=== PATIENT | male | born 1995 | race Caucasian/White ===

== ENCOUNTER 2016-12-02 17:11 | Emergency (ER) | payer OTHER ==
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
== END 2016-12-02 18:50 | disposition home or self-care (01) ==
LOC: ER 17:11
DX: S80.11XA Contusion of right lower leg, initial encounter (principal); Z90.89 Acquired absence of other organs; Z79.899 Other long term (current) drug therapy; Z87.81 Personal history of (healed) traumatic fracture; Z23 Encounter for immunization; W22.8XXA Striking against or struck by other objects, initial encounter; Y92.009 Unspecified place in unspecified non-institutional (private) residence as the place of occurrence of the external cause